=== PATIENT | male | born 1955 | race African-American/Black ===

== ENCOUNTER 2017-03-04 00:13 | Emergency (ER) | payer BC ==
[2017-03-04 00:46] VITALS: BP 101/64; PULSE 104; TEMP 99.1; BMI 34.9
[2017-03-04] MEDS ORDERED: IBUPROFEN 400 MG TABLET (FP) PO ONE ×2 (00:47→00:55)
--- NOTE | 2017-03-04 01:16 | PDOC ---
History of Present Illness - General Chief Complaint: Cold Symptoms Stated Complaint: FEVER Time Seen by Provider: 03/04/17 00:27 History Source: Patient Exam Limitations: No Limitations - History of Present Illness Initial Comments: 03/04/17 01:12 61yo Male patient w/ PmHx: HTN presents to ED c/o fever, chills, body aches, and intermittent cough. Patient states symptoms began early yesterday around 4pm. He states taking his time around 530pm it was 99.2, he took Tylenol. When he got home, he checked his temp again and it was 102.2, patient took DayQuil and came to ED for evaluation. He denies any other complaints at this time. Timing/Duration: reports: yesterday Severity: reports: mild Episode Description: See HPI Possible Cause: Yes: no prior episodes Modifying Factors: worse with: activity, albuterol inhaler, albuterol nebulizer , antibiotics, coughing, lying down, oxygen, rest, other Associated Symptoms: reports: cough, fever/chills. denies: denies symptoms, chest pain/soreness, dizziness, earache, facial pain, headache, lightheadedness , muscle aches, nasal congestion, nasal drainage, shortness of breath, sinus infection, sore throat, wheezing, other Aspirin Received prior to arrival: No: no aspirin today, unknown, 81 mg x 1, 81 mg x 2, 81 mg x 3, 81 mg x 4, 325 mg x 1, provided at home, provided by EMS, provided by ED Past History - Travel Traveled outside of the country in the last 30 days: No Close contact w/someone who was outside of country & ill: No - Past Medical History Allergies/Adverse Reactions: Allergies Allergy/AdvReac Type Severity Reaction Status Date / Time No Known Allergies Allergy Verified 03/04/17 00:52 Home Medications: Ambulatory Orders Aspirin [ASA -] 81 mg PO DAILY 03/04/17 Atorvastatin Ca [Lipitor] 10 mg PO HS 03/04/17 Azithromycin [Zithromax -] 250 mg PO DAILY #4 tablet 03/04/17 Gabapentin 400 mg PO HS 03/04/17 Losartan/Hydrochlorothiazide [Losartan-Hctz 100-12.5 mg Tab] 1 each PO DAILY 03/11 Metoprolol Succinate [Toprol Xl] 50 mg PO DAILY 03/04/17 Tamsulosin HCl [Flomax -] 0.4 mg PO DAILY 03/04/17 HTN: Yes - Suicide/Smoking/Psychosocial Hx Smoking History: Current every day smoker Number of Cigarettes Smoked Daily: 3 Information on smoking cessation initiated: No Hx Alcohol Use: Yes Drug/Substance Use Hx: Yes Respiratory Specific PMHX - Complaint Specific PMHX Angina: No Bronchitis: No Pneumonia: No Pulmonary Embolus: No TB (Tuberculosis): No Review of Systems - Review of Systems Able to Perform ROS?: Yes Is the patient limited Croatian proficient: No Constitutional: Yes: Chills, Fever, Malaise. No: Weakness HEENTM: No: Nose Congestion, Throat Pain, Throat Swelling, Mouth Pain, Mouth Swelling Respiratory: Yes: Cough. No: Orthopnea, Shortness of Breath, SOB at Rest, Stridor, Wheezing, Productive cough Cardiac (ROS): No: Chest Pain, Palpitations, Syncope, Chest Tightness ABD/GI: No: Constipated, Diarrhea, Nausea, Poor Appetite, Poor Fluid Intake, Vomiting, Abdominal cramping : No: Burning, Dysuria, Discharge, Flank Pain, Hematuria, Pain, Urgency, Testicular Swelling, Lesions Musculoskeletal: No: Back Pain, Muscle Pain Integumentary: No: Bruising, Erythema, Rash Neurological: No: Headache, Numbness, Seizure, Tingling, Weakness, Ataxia, Dizziness All Other Systems: Reviewed and Negative *Physical Exam - Vital Signs Last Vital Signs Temp Pulse Resp BP Pulse Ox 99.1 F 104 H 17 101/64 98 03/04/17 00:43 03/04/17 00:43 03/04/17 00:43 03/04/17 00:43 03/04/17 00:43 - Physical Exam General Appearance: Yes: Nourished, Appropriately Dressed. No: Apparent Distress, Mild Distress, Moderate Distress, Severe Distress HEENT: positive: EOMI, MIRIAM, Normal ENT Inspection, Normal Voice, Symmetrical, TMs Normal, Pharynx Normal. negative: Pharyngeal Erythema, Tonsillar Exudate, Tonsillar Erythema, TM Bulging, TM Dull, TM Erythema Neck: positive: Trachea midline, Normal Thyroid, Supple. negative: Rigid, Stridor, Lymphadenopathy (R), Lymphadenopathy (L), Tender lateral, Tender midline Respiratory/Chest: positive: Lungs Clear, Normal Breath Sounds. negative: Chest Tender, Respiratory Distress, Accessory Muscle Use, Labored Respiration, Rapid RR, Crackles, Rales, Stridor, Wheezing Cardiovascular: positive: Regular Rhythm, Regular Rate Musculoskeletal: positive: Normal Inspection. negative: CVA Tenderness Extremity: positive: Normal Capillary Refill, Normal Inspection, Normal Range of Motion. negative: Pedal Edema, Swelling, Calf Tenderness, Erythema, Inflammation Integumentary: positive: Normal Color, Dry, Warm. negative: Hives, Rash, Swelling, Ecchymosis, Bruising Neurologic: positive: artifacts conservator II-XII NML intact, Fully Oriented, Alert, Normal Mood/ Affect, Normal Response, Motor Strength 09/27 ED Treatment Course - LABORATORY CBC & Chemistry Diagram: 03/04/17 01:16 03/04/17 01:16 - Medications Given in the ED: ED Medications Discontinued Medications Generic Name Dose Route Start Last Admin Trade Name Freq PRN Reason Stop Dose Admin Ibuprofen 800 mg 03/04/17 00:47 03/04/17 00:59 Motrin - PO 03/04/17 00:48 800 mg ONCE ONE Administration *DC/Admit/Observation/Transfer Diagnosis at time of Disposition: Upper respiratory tract infection Qualifiers: URI type: unspecified viral URI Qualified Code(s): J06.9 - Acute upper respiratory infection, unspecified; J06.9 - Acute upper respiratory infection, unspecified; B97.89 - Other viral agents as the cause of diseases classified elsewhere; B97.89 - Other viral agents as the cause of diseases classified elsewhere - Discharge Dispostion Disposition: HOME Condition at time of disposition: Stable Admit: No - Prescriptions Prescriptions: Azithromycin [Zithromax -] 250 mg PO DAILY #4 tablet - Patient Instructions Printed Discharge Instructions: DI for Viral Upper Respiratory Infection -- Adult Additional Instructions: Follow up with your primary care provider. Take medications as prescribed. Drink plenty fluids. Motrin or Tylenol for fever. Return if your symptoms worsen or any concerns for further evaluation. Print Language: ARABIC
[2017-03-04 01:43] LABS: BASOPHIL 0.2 % (0-2.0); EOSINOPHIL 0.1 % (0-4.5); MCH 32.9 pg (25.7-33.7); MCHC 33.9 g/dl (32.0-35.9); MEAN CELL VOLUME 97.2 fl (80-96); NEUTROPHILS 88.7 % (42.8-82.8); PLATELET COUNT 198 K/MM3 (134-434); WHITE BLOOD COUNT 12.7 K/mm3 (4.0-10.0)
[2017-03-04 02:04] LABS: ALBUMIN 3.3 g/dl (3.4-5.0); ALK PHOS 51 U/L (45-117); ANION GAP 11 (8-16); BILIRUBIN,TOTAL 0.5 mg/dL (0.2-1.0); CO2 23 mmol/L (21-32); CREATININE 1.9 mg/dL (0.7-1.3); GLUCOSE,RANDOM 119 mg/dL (74-106); SGOT/AST 25 U/L (15-37); SGPT/ALT 38 U/L (12-78); TOT PROT 6.7 g/dl (6.4-8.2)
[2017-03-04] MEDS ORDERED: AZITHROMYCIN 250 MG TABLET PO ONE (04:03)
[2017-03-04] MEDS ORDERED: AZITHROMYCIN 250 MG TABLET ONE ×2 (04:22→04:27)
== END 2017-03-04 04:36 | disposition home or self-care (01) ==
LOC: JER 00:13
DX: J06.9 Acute upper respiratory infection, unspecified (principal); B97.89 Other viral agents as the cause of diseases classified elsewhere; I10 Essential (primary) hypertension; F17.210 Nicotine dependence, cigarettes, uncomplicated; Z79.82 Long term (current) use of aspirin
CPT/HCPCS: 36415; 71020-TC; 80053; 85025; 87804; 99281-25

== ENCOUNTER 2017-11-15 17:11 | Emergency (ER) | payer BC ==
[2017-11-15 17:22] VITALS: BMI 34.9
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
[2017-11-15 18:39] LABS: BASO % 0.4 % (0-2.0); EOS % 0.5 % (0-4.5); HEMATOCRIT 38.2 % (35.4-49); LYMPH % 2.3 % (8-40); MCH 31.9 pg (25.7-33.7); MEAN PLT VOLUME 8.2 fl (7.5-11.1); MONO % 4.6 % (3.8-10.2); NEUT % 92.2 % (42.8-82.8); PLATELET COUNT 230 K/MM3 (134-434); RBC 4.07 M/mm3 (4.00-5.60); RDW 13.4 % (11.9-15.9); WHITE BLOOD COUNT 13.6 K/mm3 (4.0-10.0)
[2017-11-15 18:48] LABS: VENOUS PC02 35.4 mmHg (38-52); VENOUS PH 7.45 (7.32-7.42); VENOUS PO2 36.6 mmHg (28-48)
[2017-11-15 18:50] LABS: URINE APPEARANCE CLEAR; URINE BILIRUBIN NEGATIVE (<2.0 mg/dL); URINE COLOR STRAW; URINE GLUCOSE (UA) NEGATIVE (NEGATIVE); URINE KETONE NEGATIVE (NEGATIVE); URINE LEUK ESTERASE NEGATIVE (NEGATIVE); URINE NITRITE NEGATIVE (NEGATIVE); URINE PROTEIN NEGATIVE (NEGATIVE); URINE UROBILINOGEN NEGATIVE mg/dL (0.2-1.0)
[2017-11-15 19:08] LABS: INR 1.08 (0.82-1.09); PROTHROMBIN TIME (PATIENT) 12.2 SEC (9.7-13.0)
[2017-11-15 19:18] LABS: ALBUMIN 3.7 g/dl (3.4-5.0); ANION GAP 8 (8-16); BILIRUBIN,TOTAL 0.8 mg/dL (0.2-1.0); BLOOD UREA NITROGEN 12 mg/dL (7-18); CALCIUM 8.7 mg/dL (8.5-10.1); CHLORIDE 104 mmol/L (98-107); CO2 26 mmol/L (21-32); CREATININE 1.5 mg/dL (0.7-1.3); GLUCOSE,RANDOM 101 mg/dL (74-106); POTASSIUM 3.7 mmol/L (3.5-5.1); SGOT/AST 17 U/L (15-37); SGPT/ALT 37 U/L (12-78); SODIUM 138 mmol/L (136-145); TOT PROT 7.1 g/dl (6.4-8.2)
[2017-11-15 19:19] LABS: ALK PHOS 48 U/L (45-117)
[2017-11-15 19:51] LABS: MACROCYTOSIS 1+; PLATELET ESTIMATE ADEQUATE
[2017-11-15 22:50] VITALS: BP 146/88; PULSE 95; TEMP 98
--- NOTE | 2017-11-17 21:48 | EKG ---
Test Reason : Blood Pressure : / mmHG Vent. Rate : 101 BPM Atrial Rate : 101 BPM P-R Int : 162 ms QRS Dur : 082 ms QT Int : 334 ms P-R-T Axes : 068 018 020 degrees QTc Int : 433 ms SINUS TACHYCARDIA POSSIBLE LEFT ATRIAL ENLARGEMENT POSSIBLE ANTERIOR INFARCT , AGE UNDETERMINED ABNORMAL ECG WHEN COMPARED WITH ECG OF 26-JUL-2002 02:44, NO SIGNIFICANT CHANGE WAS FOUND Confirmed by RENITA IBARRA MD ([id number]) on 11/17/2017 9:47:51 PM Referred By: Confirmed By:RENITA IBARRA MD
== END 2017-11-15 23:30 | disposition home or self-care (01) ==
LOC: JER 17:11
DX: R50.9 Fever, unspecified (principal); M25.522 Pain in left elbow; M25.521 Pain in right elbow; M25.561 Pain in right knee; M25.562 Pain in left knee; I10 Essential (primary) hypertension; R22.41 Localized swelling, mass and lump, right lower limb; T79.A21S Traumatic compartment syndrome of right lower extremity, sequela; X58.XXXS Exposure to other specified factors, sequela
CPT/HCPCS: 36415; 71045-TC-FY; 71250-TC; 72100-TC-FY; 80053; 81003; 82803; 83605; 84484; 85025; 85610; 85651; 85730; 86140; 87040; 87086; 87804; 93005; 93010; 99283-25

== ENCOUNTER 2022-08-28 01:26 | Emergency (ER) | payer OTHER, BC ==
[2022-08-28 02:02] VITALS: BP 147/88; PULSE 85; RESP 17; TEMP 98.1; BMI 36.5
[2022-08-28] MEDS ORDERED: IBUPROFEN 600 MG TABLET (FP) PO ONE ×2 (07:55→08:10)
== END 2022-08-28 10:48 | disposition home or self-care (01) ==
LOC: JER 01:26
DX: T23.072A Burn of unspecified degree of left wrist, initial encounter (principal); M25.571 Pain in right ankle and joints of right foot; V43.52XA Car driver injured in collision with other type car in traffic accident, initial encounter; Y92.89 Other specified places as the place of occurrence of the external cause
CPT/HCPCS: 70450-TC; 72125-TC; 73060-TC-LT-FY; 73090-TC-LT-FY; 73110-TC-LT-FY; 73110-TC-RT-FY; 73130-TC-LT-FY; 73130-TC-RT-FY; 73610-TC-RT-FY; 73630-TC-RT-FY; 99284-25